=== PATIENT | female | born 1990 | race Two or more races ===

== ENCOUNTER → 2021-03-09 | Outpatient (REF) | payer OTHER ==
[2021-03-09 13:43] LABS: MEAN CORPUSCULAR HEMOGLOBIN 28.7 pg (27.0-33.0); MEAN CORPUSCULAR HGB CONC 32.4 g/dl (32.0-36.5); MEAN CORPUSCULAR VOLUME 88.5 fl (80.0-96.0); PLATELET COUNT, AUTOMATED 191 10^3/uL (150-450); RED BLOOD COUNT 4.18 10^6/uL (4.00-5.40); WHITE BLOOD COUNT 6.8 10^3/uL (4.0-10.0)
[2021-03-09 14:07] LABS: ALBUMIN 3.5 GM/DL (3.2-5.2); ALT/SGPT 68 U/L (12-78); BILIRUBIN,TOTAL 0.3 MG/DL (0.2-1.0); BLOOD UREA NITROGEN 12 MG/DL (7-18); CALCIUM LEVEL 8.9 MG/DL (8.5-10.1); CARBON DIOXIDE LEVEL 27 MEQ/L (21-32); CHLORIDE LEVEL 106 MEQ/L (98-107); CREATININE FOR GFR 0.59 MG/DL (0.55-1.30); GLOMERULAR FILTRATION RATE > 60.0 (>60); GLUCOSE, FASTING 82 MG/DL (70-100); POTASSIUM SERUM 3.9 MEQ/L (3.5-5.1); SODIUM LEVEL 138 MEQ/L (136-145); TOTAL PROTEIN 7.2 GM/DL (6.4-8.2)
[2021-03-09 14:11] LABS: HCG, SERUM QUALITATIVE NEGATIVE (NEGATIVE)
[2021-03-09 14:55] LABS: HIV 1&2 SCREEN CENTAUR NEGATIVE (NEGATIVE)
[2021-03-14 19:07] LABS: HEPATITIS C QUANTITATION 95700 IU/mL (.); HEPATITIS C VIRUS GENOTYPE 1a (.)
== END ==
LOC: M SFHCPLAZ 09:35
PROVIDERS: ATTEND Internal Medicine Infectious Disease
DX: B18.2 Chronic viral hepatitis C (principal)
CPT/HCPCS: 36415; 80053; 81596; 84703; 85027; 87389; 87522; 87902; G0463

== ENCOUNTER → 2021-04-03 | Outpatient (REF) | payer OTHER ==
[2021-04-03 15:32] LABS: ALBUMIN 3.6 GM/DL (3.2-5.2); BILIRUBIN,DIRECT 0.1 MG/DL (0.0-0.2); BILIRUBIN,TOTAL 0.4 MG/DL (0.2-1.0); TOTAL PROTEIN 7.5 GM/DL (6.4-8.2)
[2021-04-04 15:08] LABS: HEPATITIS C QUANTITATION HCV Not Detected IU/mL (.)
== END ==
LOC: M SFHCPLAZ 09:41
PROVIDERS: ATTEND Internal Medicine Infectious Disease
DX: B18.2 Chronic viral hepatitis C (principal)

== ENCOUNTER → 2021-06-09 | Outpatient (CLI) | payer OTHER | LOC: M LABSMTC 11:27 | PROVIDERS: ATTEND Anesthesiology | DX: Z01.812 Encounter for preprocedural laboratory examination (principal); Z20.822 Contact with and (suspected) exposure to COVID-19 ==

== ENCOUNTER 2021-06-14 06:43 | Day surgery (SDC) | payer SELFPAY ==
[~2021-06-14] VITALS: Ht 157.5 cm; Wt 57.2 kg
[~2021-06-14 06:43] MED LIST: ACETAMINOPHEN *IV* 1,000 MG IV ONE; LR 1,000 ML IV ONE; ceFAZolin SOD 2 GM in IV 1 EA IV ONE
[2021-06-14 07:10] LABS: HEMATOCRIT 35.3 % (36.0-47.0); HEMOGLOBIN 11.7 g/dl (12.0-15.5); MEAN CORPUSCULAR HEMOGLOBIN 29.2 pg (27.0-33.0); MEAN CORPUSCULAR HGB CONC 33.1 g/dl (32.0-36.5); PLATELET COUNT, AUTOMATED 189 10^3/uL (150-450); RED BLOOD COUNT 4.01 10^6/uL (4.00-5.40); WHITE BLOOD COUNT 5.6 10^3/uL (4.0-10.0)
[2021-06-14] MEDS ORDERED: METHYLENE BLUE 0.5% (5MG/ML) 10 ML AMP (PROVAYBLUE) As Ordered ONE (07:24)
[2021-06-14 07:30] LABS: BLOOD UREA NITROGEN 7 MG/DL (7-18); CALCIUM LEVEL 8.6 MG/DL (8.5-10.1); CARBON DIOXIDE LEVEL 25 MEQ/L (21-32); CHLORIDE LEVEL 109 MEQ/L (98-107); CREATININE FOR GFR 0.62 MG/DL (0.55-1.30); GLOMERULAR FILTRATION RATE > 60.0 (>60); GLUCOSE, FASTING 93 MG/DL (70-100); POTASSIUM SERUM 3.8 MEQ/L (3.5-5.1); SODIUM LEVEL 140 MEQ/L (136-145)
[2021-06-14] MEDS ORDERED: LIDOCAINE 2% 100MG/5ML SDV (FOR ANES.) As Ordered ONE (08:12)
[2021-06-14] MEDS ORDERED: propofoL 200 MG/20 ML VIAL As Ordered ONE (08:12)
[2021-06-14] MEDS ORDERED: ROCURONIUM BROMIDE 50 MG/5 ML VIAL As Ordered ONE (08:12)
[2021-06-14] MEDS ORDERED: fentaNYL 250 MCG/5 ML INJECTION (J3010) As Ordered ONE (08:13)
[2021-06-14] MEDS ORDERED: MIDAZOLAM INJ 2MG/2ML VIAL (J2250 PER 1MG) As Ordered ONE (08:13)
[2021-06-14] MEDS ORDERED: ONDANSETRON 4MG/2ML VIAL As Ordered ONE (08:18)
[2021-06-14] MEDS ORDERED: dexameTHASONE 4 MG/ML 1ML VIAL (J1100 PER 1MG) As Ordered ONE (08:18)
[2021-06-14] MEDS ORDERED: KETOROLAC 60MG 2ML VIAL As Ordered ONE (08:18)
[2021-06-14] MEDS ORDERED: ACETAMINOPHEN 1000MG 100ML IV BTL (OFIRMEV) (J0131 PER 10MG) As Ordered ONE (08:18)
[2021-06-14] MEDS ORDERED: SUGAMMADEX SODIUM 500 MG/5 ML VIAL (BRIDION) As Ordered ONE (08:30)
[2021-06-14] MEDS ORDERED: HYDROmorphone HCL 2 MG/ML 1ML VIAL (J1170) As Ordered ONE (08:54)
[2021-06-14] MEDS ORDERED: HYDROMORPHONE HCL 0.5 MG/ 0.5 ML SYRINGE (J1170 PER 1) IV PRN (10:20)
[2021-06-14] MEDS ORDERED: ONDANSETRON 4MG/2ML VIAL IV PRN (10:20)
[2021-06-14] MEDS ORDERED: LR 1,000 ML IV SCH ×2 (10:20→10:25)
[2021-06-14] MEDS ORDERED: fentaNYL 100 MCG/2 ML INJECTION (J3010) IV PRN (10:20)
[2021-06-14] MEDS: oxyCODONE 5MG TAB PO PRN ×2 (10:45→11:28)
--- NOTE | 2021-06-14 11:11 | RO ---
OPERATIVE NOTE DATE OF OPERATION: 06/14/2021 Germaine is a 30-year-old multiparous female with history of prior tubal ligations and now desires tubal reversal. After counseling in the office and proper evaluation, a decision was made to proceed with a mini-laparotomy, reanastomosis of both tubes if possible and chromotubation. PREOPERATIVE DIAGNOSIS: 1. Secondary infertility. 2. Tubal ligation status. POSTOPERATIVE DIAGNOSIS: 1. Secondary infertility. 2. Tubal ligation status. 3. Extremely short segment of both tubes. PROCEDURE: Mini-laparotomy. Reanastomosis of both fallopian tubes. Chromotubation with patent tubes at the end of the procedure. SURGEON: Mike Jamil DO RUBBER STAMP DIE INSPECTOR: ANESTHESIA: General COMPLICATIONS: None. ESTIMATED BLOOD LOSS: 50 mL. DESCRIPTION OF PROCEDURE: After obtaining informed consent, the patient was taken to the operating room where general anesthetic was found to be adequate. She was then draped and prepped in the usual sterile fashion in a dorsal lithotomy position. At this point, a HUMI manipulator was placed in the uterus for chromotubation as well as uterine manipulation. A Cam catheter was also placed. I then turned my attention to the abdomen where a 3-4 inch incision was made. This was carried down to the fascia. The fascia was incised in a midline fashion. The peritoneum identified. The peritoneal cavity was entered bluntly. At this time, a Mobius skin retractor was placed. The patient was placed in Trendelenburg, the pelvis inspected, normal appearing uterus, normal ovaries. The two segments of the tubes were identified. The fimbriated ends were extremely short with a short stump at the cornual area. At this point using micro-instruments, the fallopian tube closer to the uterus, the scar tissue was removed at the end and the dye was pushed. At that point, the opening of the tubes was identified. We then used a guidewire through the fimbriated end. The scar tissue around the fimbriated end was also removed. The mesosalpinx of the tubes was identified. 5-0 Monocryl suture was used and the mesosalpinx was closed, bringing the two ends of the tubes closer together. At this point using 5-0 Monocryl suture, we then reanastomosed the tubes in two separate layers with the guidewire in both the fimbriated end as well as the uterine end of the tube. After securing and bringing the tubes together in two separate layers, we then pushed dye through and noted that dye was coming out of the fimbriated end of the tube, no leakage noted. The opposite side was then identified. Again the cornual part of the tube where the ends were scarred were freed up, dye noted coming out of that segment. We did a similar procedure for the fimbriated end using the guidewire. The two ends were brought together. The mesosalpinx was closed using 5-0 Monocryl and the tube was reanastomosed in a similar fashion using the 5-0 Monocryl sutures. Again, dye was pushed at the end of the procedure. Bilateral tubes were found to be patent with dye coming out of the fimbriated end. At this point, the pelvis was copiously irrigated with normal saline and suctioned out. All instruments removed. Instrument count was correct. The peritoneum closed using 2-0 Vicryl, fascia closed in two separate segments of 0 Vicryl sutures and the skin was reapproximated in a subcuticular fashion using 3-0 Vicryl on a [place]. Steri-Strip placed. The patient tolerated the procedure well. She was then transferred to recovery room in stable condition. [facility]
[2021-06-14] MEDS ORDERED: PERC5TAB12 PO (13:41)
[2021-06-14 13:45] VITALS: BP 122/67
[2021-06-14] MEDS ORDERED: IBUPROFEN 800 MG TAB PO SCH (16:00)
== END 2021-06-14 13:55 | disposition home or self-care (01) ==
LOC: M SDC 06:43
PROVIDERS: ATTEND Obstetrics & Gynecology
DX: N97.1 Female infertility of tubal origin (principal); B18.2 Chronic viral hepatitis C
CPT/HCPCS: 36415; 58350; 58750; 80048; 81025; 85027; 86850; 86900; 86901; J0131; J0690; J1100; J1170; J1885; J2250; J2405; J3010; Q9968

== ENCOUNTER 2021-06-27 14:54 | Emergency (ER) | payer SELFPAY ==
[~2021-06-27] VITALS: Ht 157.5 cm; Wt 126.0 kg
[~2021-06-27 14:54] MED LIST changes: -ACETAMINOPHEN *IV* 1,000 MG IV ONE; -LR 1,000 ML IV ONE; +PERC5TAB12 PO; -ceFAZolin SOD 2 GM in IV 1 EA IV ONE
[2021-06-27 14:55] VITALS: BP 123/65
== END 2021-06-27 16:40 | disposition left against medical advice (07) ==
LOC: M ED 14:54
DX: Z53.21 Procedure and treatment not carried out due to patient leaving prior to being seen by health care provider (principal)

== ENCOUNTER 2021-07-12 05:40 | Emergency (ER) | payer OTHER, SELFPAY ==
[~2021-07-12] VITALS: Ht 157.5 cm; Wt 57.8 kg
[2021-07-12] MEDS ORDERED: NS 1,000 ML IV ONE (07:40)
--- NOTE | 2021-07-12 08:24 | REP ---
INDICATION: RUQ pain. COMPARISON: None TECHNIQUE: Real-time sonographic evaluation of the right upper quadrant with Doppler FINDINGS: Multiple ultrasonographic images of the liver show the hepatic parenchymal echo texture to appear unremarkable. There are no focal masses. There is no intrahepatic ductal dilatation. The common bile duct measures approximately 3 mm in its greatest transverse dimension. Multiple ultrasonographic images of the gallbladder show no focal or diffuse gallbladder wall thickening. There are no echogenic foci within the gallbladder lumen, which casts acoustic shadows. There is no pericholecystic edema. Images of the pancreatic region show no gross abnormality. The imaged portion of the right kidney shows a 1 cm sized anechoic structure in the superior pole. IMPRESSION: Unremarkable right upper quadrant ultrasound. There is an incidental right renal cyst. Accredited by the [employer] in General Ultrasound. <Electronically signed by David Minor > 07/12/21 [id number]
[2021-07-12 08:41] LABS: BASO % 0.2 % (0.0-1.0); EOS % 0.5 % (0.0-3.0); HEMATOCRIT 33.2 % (36.0-47.0); LYMPH # 1.2 10^3/uL (1.5-5.0); LYMPH % 15.2 % (24.0-44.0); MEAN CORPUSCULAR HEMOGLOBIN 28.5 pg (27.0-33.0); MEAN CORPUSCULAR HGB CONC 33.1 g/dl (32.0-36.5); MONO # 0.5 10^3/uL (0.0-0.8); MONO % 6.3 % (2.0-8.0); NEUTROPHILS # 6.2 10^3/uL (1.5-8.5); NEUTROPHILS % 77.3 % (36.0-66.0); PLATELET COUNT, AUTOMATED 263 10^3/uL (150-450); RED BLOOD COUNT 3.86 10^6/uL (4.00-5.40); WHITE BLOOD COUNT 8.1 10^3/uL (4.0-10.0)
[2021-07-12 08:56] LABS: ALBUMIN 2.8 GM/DL (3.2-5.2); ALT/SGPT 19 U/L (12-78); BILIRUBIN,DIRECT < 0.1 MG/DL (0.0-0.2); BILIRUBIN,TOTAL 0.2 MG/DL (0.2-1.0); BLOOD UREA NITROGEN 6 MG/DL (7-18); CALCIUM LEVEL 8.3 MG/DL (8.5-10.1); CARBON DIOXIDE LEVEL 28 MEQ/L (21-32); CHLORIDE LEVEL 107 MEQ/L (98-107); CREATININE FOR GFR 0.57 MG/DL (0.55-1.30); GLOMERULAR FILTRATION RATE > 60.0 (>60); GLUCOSE, FASTING 94 MG/DL (70-100); LIPASE 94 U/L (73-393); POTASSIUM SERUM 3.7 MEQ/L (3.5-5.1); SODIUM LEVEL 142 MEQ/L (136-145); TOTAL PROTEIN 7.3 GM/DL (6.4-8.2)
[2021-07-12 08:58] LABS: AMYLASE 79 U/L (25-115); CK-MB VALUE MASS < 1.0 NG/ML (<3.6); CPK CREATINE PHOSPHOKINASE 121 U/L (26-192); MB/CK RELATIVE INDEX 0.83 (< OR =4); TROPONIN I < 0.02 NG/ML (< 0.10)
--- NOTE | 2021-07-12 09:07 | REP ---
INDICATION: Abdominal Pain. COMPARISON: None. FINDINGS: Supine and upright views of the abdomen show the intestinal gas pattern to be nonspecific. There are a few gas-filled mildly dilated small bowel loops in left upper quadrant. Gas and stool is seen throughout the colon within the rectosigmoid region. The organ silhouettes insofar as delineated appear unremarkable. No abdominal calcific densities are seen within the abdomen or pelvis. The accompanying single frontal view of the chest shows no free subdiaphragmatic air, cardiomegaly, infiltrates or effusions. IMPRESSION: Nonspecific intestinal gas pattern. Probable mild ileus. <Electronically signed by David Minor > 07/12/21 0912
[2021-07-12] MEDS ORDERED: KETOROLAC 30 MG/ML 1ML VIAL IV ONE (09:40)
[2021-07-12] MEDS ORDERED: ISOVUE-370 76% 100ML VIAL As Ordered ONE (11:18)
--- NOTE | 2021-07-12 11:58 | REP ---
INDICATION: r/o PE, RUQ/R lower chest pleuritic pain. COMPARISON: None TECHNIQUE: Axial contrast-enhanced images from the lung bases to the pubic symphysis using 100 cc Isovue 370 intravenous contrast material. Coronal and sagittal reformations obtained. This CT examination was performed using the following dose reduction techniques: Automated exposure control, adjustment of mA and/or kv according to the patient's size, and the use of iterative reconstruction technique. FINDINGS: Liver, spleen, pancreas, gallbladder, bilateral adrenal glands and kidneys are normal. There is subtle nonspecific stranding through the mesentery with very subtle hazy changes surrounding few loops of small bowel in the left mid to lower abdomen as well as small amount of free fluid in the pelvis. There is no associated bowel obstruction or free air to suggest perforation and findings may represent an element of enteritis. Incidental 2 cm fat containing periumbilical hernia noted. Pelvis demonstrates normal bladder and prominent appearance to the uterus and adnexa with prominent periuterine vascularity raising the possibility of mild pelvic congestion syndrome. No intraperitoneal or retroperitoneal adenopathy. Abdominal aorta and vasculature appear normal. Musculoskeletal structures are intact and without acute osseous abnormality. IMPRESSION: 1. Findings suspicious for element of infectious/inflammatory enteritis as described above. No evidence for bowel obstruction or perforation. No drainable collection/abscess. 2. Possible nonacute pelvic congestion syndrome may warrant further investigation. <Electronically signed by Kayden Jenkins > 07/12/21 [id number]
--- NOTE | 2021-07-12 12:00 | REP ---
INDICATION: r/o PE, RUQ/R lower chest pleuritic pain COMPARISON: None. TECHNIQUE: Axial contrast enhanced images from the thoracic inlet to the upper abdomen using pulmonary embolus technique with multiplanar re-formations. 100 ml Isovue 370 intravenous contrast material administered without complication. Examination is followed by CT of the abdomen and pelvis due to concomitant abdominal pain. This CT examination was performed using the following dose reduction techniques: Automated exposure control, adjustment of mA and/or kv according to the patient's size, and use of iterative reconstruction technique. FINDINGS: Satisfactory enhancement of the pulmonary vasculature is achieved and no filling defects are identified to suggest pulmonary embolus. Further evaluation of the mediastinum demonstrates normal thoracic aorta, heart and pericardium. The bilateral lung silveira are well aerated and clear without consolidation pleural effusion or pneumothorax. Tracheobronchial tree is patent. No nodule or mass lesion is identified. No adenopathy noted. Surrounding musculoskeletal structures intact IMPRESSION: No evidence for pulmonary embolus. No acute mediastinal or pleural parenchymal process. <Electronically signed by Kayden Jenkins > 07/12/21 [id number]
[2021-07-12] MEDS ORDERED: ONDANSETRON 4MG/2ML VIAL IV ONE (12:20)
[2021-07-12] MEDS ORDERED: MORPHINE 4 MG/ML 1ML VIAL/SYRINGE (J2270) IV ONE (12:20)
--- NOTE | 2021-07-12 12:59 | REP ---
INDICATION: elevated dimer, r/o dvt COMPARISON: None. TECHNIQUE: Lewis scale and color Doppler evaluation using linear high frequency transducer. FINDINGS: Ultrasound examination of the right and left lower extremity deep venous structures from the common femoral vein through the calf/ankle to include the peroneal, and tibial veins demonstrates normal compressibility flow and wave patterns in response to respiration and augmentation. There is no evidence for deep venous thrombosis. IMPRESSION: No evidence for deep venous thrombosis to the bilateral lower extremities. <Electronically signed by Kayden Jenkins > 07/12/21 2050
[2021-07-12] MEDS ORDERED: ACET1TAB16 PO (13:50)
[2021-07-12 14:09] VITALS: BP 98/55
--- NOTE | 2021-07-13 07:39 | ECGEPIP ---
[facility] - ED Test Date: 2021-07-12 Pat Name: CINDY LAINEZ Department: Room: - Gender: Female Shear Operator: JOVANI : 1990 Requested By: RENO Lange PA-C Order Number: [id number] Reading MD: Eri Rayo Measurements Intervals [place] Rate: 71 P: 17 PA: 166 QRS: -42 QRSD: 82 T: 21 QT: 414 QTc: 449 Interpretive Statements Normal sinus rhythm Left axis deviation Septal infarct , age undetermined low voltage limb NSTTW abnormalities No prior Electronically Signed on 07-13-2021 7:39:37 EDT by Eri Rayo
== END 2021-07-12 14:35 | disposition home or self-care (01) ==
LOC: M ED 05:40
DX: K52.9 Noninfective gastroenteritis and colitis, unspecified (principal); N94.89 Other specified conditions associated with female genital organs and menstrual cycle; Z86.19 Personal history of other infectious and parasitic diseases; N28.1 Cyst of kidney, acquired
CPT/HCPCS: 36415; 71275; 74021; 74177; 76705; 80048; 80076; 82150; 82550; 82553; 83690; 84484; 84702; 85025; 85379; 93005; 93970; 96361; 96374; 96375; 99284; J1885; J2270; J2405; Q9967

== ENCOUNTER → 2022-03-20 | Outpatient (CLI) | payer OTHER ==
[~2022-03-20] MED LIST changes: +ACET300T48 PO
== END ==
LOC: M RADPRO 11:18
PROVIDERS: ATTEND Obstetrics & Gynecology
DX: N97.9 Female infertility, unspecified (principal)

== ENCOUNTER → 2022-06-19 | Outpatient (CLI) | payer OTHER ==
[2022-06-19 14:14] LABS: BASO % 0.2 % (0.0-1.0); EOS # 0.1 10^3/uL (0.0-0.5); EOS % 1.5 % (0.0-3.0); HEMATOCRIT 39.7 % (36.0-47.0); HEMOGLOBIN 12.9 g/dl (12.0-15.5); LYMPH # 1.5 10^3/uL (1.5-5.0); LYMPH % 27.7 % (24.0-44.0); MEAN CORPUSCULAR HGB CONC 32.5 g/dl (32.0-36.5); MEAN CORPUSCULAR VOLUME 89.2 fl (80.0-96.0); MONO # 0.4 10^3/uL (0.0-0.8); NEUTROPHILS # 3.4 10^3/uL (1.5-8.5); NEUTROPHILS % 62.1 % (36.0-66.0); PLATELET COUNT, AUTOMATED 216 10^3/uL (150-450); RED BLOOD COUNT 4.45 10^6/uL (4.00-5.40); WHITE BLOOD COUNT 5.5 10^3/uL (4.0-10.0)
[2022-06-19 15:07] LABS: ALBUMIN 3.9 GM/DL (3.2-5.2); ALT/SGPT 96 U/L (12-78); BILIRUBIN,TOTAL 0.7 MG/DL (0.2-1.0); BLOOD UREA NITROGEN 10 MG/DL (7-18); CALCIUM LEVEL 9.1 MG/DL (8.5-10.1); CARBON DIOXIDE LEVEL 28 MEQ/L (21-32); CHLORIDE LEVEL 108 MEQ/L (98-107); CREATININE FOR GFR 0.76 MG/DL (0.55-1.30); GLOMERULAR FILTRATION RATE > 60.0 (>60); GLUCOSE, FASTING 98 MG/DL (70-100); POTASSIUM SERUM 3.8 MEQ/L (3.5-5.1); SODIUM LEVEL 141 MEQ/L (136-145); TOTAL PROTEIN 7.8 GM/DL (6.4-8.2)
[2022-06-20 15:12] LABS: HEPATITIS C QUANTITATION HCV Not Detected IU/mL (.)
== END ==
LOC: M PLALAB 09:05
PROVIDERS: ATTEND Internal Medicine Infectious Disease
DX: B18.2 Chronic viral hepatitis C (principal)

== ENCOUNTER → 2022-07-06 | Outpatient (CLI) | payer OTHER ==
[2022-07-06 14:10] LABS: ALT/SGPT 25 U/L (12-78)
== END ==
LOC: M PLALAB 10:07
PROVIDERS: ATTEND Internal Medicine Infectious Disease
DX: R79.89 Other specified abnormal findings of blood chemistry (principal)

== ENCOUNTER 2023-05-28 09:04 | Day surgery (SDC) | payer OTHER ==
[~2023-05-28] VITALS: Ht 157.5 cm; Wt 63.9 kg
[~2023-05-28 09:04] MED LIST changes: +BALANCED SALT SOLN OPHTH 15 ML BTL As Ordered ONE; +CIPROFLOXACIN 0.3% OPHTH OINTMENT As Ordered ONE; +LIDOCAINE W/EPINEPHRINE 1% 20ML VIAL As Ordered ONE; +POVIDONE-IODINE 5% OPHTH PREP SOL 30ML As Ordered ONE; +SODIUM BICARBONATE 8.4% INJ 50ML SYRINGE As Ordered ONE
[2023-05-28] MEDS ORDERED: fentaNYL 100 MCG/2 ML INJECTION As Ordered ONE (10:12)
[2023-05-28] MEDS ORDERED: MIDAZOLAM INJ 2MG/2ML VIAL As Ordered ONE (10:12)
[2023-05-28] MEDS ORDERED: LIDOCAINE 1% SDV 5ML VIAL SC PRN (12:00)
[2023-05-28] MEDS ORDERED: LR 1,000 ML IV SCH (12:00)
[2023-05-28] MEDS ORDERED: POVIDONE-IODINE 5% OPHTH PREP SOL 30ML As Ordered ONE (12:04)
[2023-05-28] MEDS ORDERED: LIDOCAINE 2% 100MG/5ML SDV (FOR ANES.) As Ordered ONE (12:15)
[2023-05-28] MEDS ORDERED: propofoL 200 MG/20 ML VIAL As Ordered ONE ×2 (12:15→13:47)
[2023-05-28] MEDS ORDERED: ONDANSETRON 4MG 2ML VIAL As Ordered ONE (12:17)
[2023-05-28] MEDS ORDERED: ONDANSETRON 4MG 2ML VIAL IV PRN (13:30)
[2023-05-28] MEDS: oxyCODONE 5MG TAB PO PRN ×2 (14:07→14:49)
[2023-05-28 15:20] VITALS: BP 118/56; TEMP 98.9; O2SAT 98
== END 2023-05-28 15:24 | disposition home or self-care (01) ==
LOC: M SDC 09:04
PROVIDERS: ATTEND Ophthalmology
DX: H11.001 Unspecified pterygium of right eye (principal); R06.83 Snoring; B19.20 Unspecified viral hepatitis C without hepatic coma; Z98.51 Tubal ligation status
CPT/HCPCS: 65426; 88304; J2250; J2405; J3010

== ENCOUNTER 2024-02-14 11:05 | Emergency (ER) | payer OTHER ==
[~2024-02-14] VITALS: Ht 157.5 cm; Wt 64.8 kg
[~2024-02-14 11:05] MED LIST changes: -BALANCED SALT SOLN OPHTH 15 ML BTL As Ordered ONE; -CIPROFLOXACIN 0.3% OPHTH OINTMENT As Ordered ONE; -LIDOCAINE W/EPINEPHRINE 1% 20ML VIAL As Ordered ONE; -POVIDONE-IODINE 5% OPHTH PREP SOL 30ML As Ordered ONE; -SODIUM BICARBONATE 8.4% INJ 50ML SYRINGE As Ordered ONE
[2024-02-14 13:33] VITALS: BP 109/57; TEMP 97.6; O2SAT 100
== END 2024-02-14 13:41 | disposition home or self-care (01) ==
LOC: M ED 11:05
DX: S39.011A Strain of muscle, fascia and tendon of abdomen, initial encounter (principal); X58.XXXA Exposure to other specified factors, initial encounter; Y92.9 Unspecified place or not applicable; Y93.9 Activity, unspecified; Y99.9 Unspecified external cause status

== ENCOUNTER → 2024-05-04 | Outpatient (CLI) | payer OTHER ==
[2024-05-04 12:43] LABS: BASO % 0.5 % (0.0-1.0); EOS # 0.1 10^3/uL (0.0-0.5); EOS % 1.2 % (0.0-3.0); HEMATOCRIT 37.3 % (36.0-47.0); HEMOGLOBIN 12.4 g/dl (12.0-15.5); LYMPH # 1.6 10^3/uL (1.5-5.0); LYMPH % 26.7 % (24.0-44.0); MEAN CORPUSCULAR HEMOGLOBIN 30.4 pg (27.0-33.0); MEAN CORPUSCULAR HGB CONC 33.2 g/dl (32.0-36.5); MEAN CORPUSCULAR VOLUME 91.4 fl (80.0-96.0); MONO # 0.5 10^3/uL (0.0-0.8); MONO % 8.1 % (2.0-8.0); NEUTROPHILS # 3.9 10^3/uL (1.5-8.5); NEUTROPHILS % 63.3 % (36.0-66.0); PLATELET COUNT, AUTOMATED 257 10^3/uL (150-450); RED BLOOD COUNT 4.08 10^6/uL (4.00-5.40); WHITE BLOOD COUNT 6.1 10^3/uL (4.0-10.0)
[2024-05-04 12:58] LABS: FOLATE 8.1 NG/ML (>5.4)
[2024-05-04 12:59] LABS: THYROID STIMULATING HORMONE 2.612 uIU/ML (0.55-4.78)
[2024-05-04 13:02] LABS: ERYTHROCYTE SEDIMENTATION RATE 45 mm/hr (0-20)
[2024-05-04 13:03] LABS: VITAMIN B12 LEVEL 478 PG/ML (211-911)
[2024-05-04 13:05] LABS: ALBUMIN 3.6 G/DL (3.2-5.2); ALKALINE PHOSPHATASE 90 U/L (46-116); ALT/SGPT 17 U/L (7.0-40); AST/SGOT 11 U/L (<34); BILIRUBIN,TOTAL 0.3 MG/DL (0.3-1.2); BLOOD UREA NITROGEN 7 MG/DL (9-23); CALCIUM LEVEL 8.8 MG/DL (8.5-10.1); CARBON DIOXIDE LEVEL 25 MMOL/L (20-31); CHLORIDE LEVEL 108 MMOL/L (98-107); CREATININE FOR GFR 0.65 MG/DL (0.55-1.30); GLOMERULAR FILTRATION RATE > 60.0 (>60); GLUCOSE, FASTING 96 MG/DL (60-100); IRON (FE) 35 UG/DL (50-170); PERCENT SATURATION 9.7 % (13.2-45.0); POTASSIUM SERUM 4.2 MMOL/L (3.5-5.1); SODIUM LEVEL 138 MMOL/L (136-145); TOTAL IRON BINDING CAPACITY 362 UG/DL (250-425); TOTAL PROTEIN 7.4 G/DL (5.7-8.2)
[2024-05-06 01:02] LABS: HCV RNA QUANTITATION <15 NOT DETECTED IU/mL (NOT DETECTED); HCV RNA log10 <1.18 NOT DETECTED Log IU/mL (NOT DETECTED)
== END ==
LOC: M PLALAB 09:05
PROVIDERS: ATTEND Internal Medicine Infectious Disease
DX: Z22.7 Latent tuberculosis (principal); B18.2 Chronic viral hepatitis C; R53.83 Other fatigue

== ENCOUNTER → 2024-06-04 | Outpatient (CLI) | payer OTHER ==
[~2024-06-04] MED LIST changes: +METHACHOLINE KIT (6 VIAL.NEB PREMIX) INH ONE
[2024-06-05 14:22] LABS: BERMUDA GRASS IGE < 0.10 kU/L (<0.10); BIRCH IGE < 0.10 kU/L (<0.10); COMMON RAGWEED SHORT IGE < 0.10 kU/L (<0.10); D001 IGE D PTERONYSSINUS 0.51 kU/L (<0.10); E001-IGE CAT DANDER < 0.10 kU/L (<0.10); E005-IGE DOG DANDER < 0.10 kU/L (<0.10); ELM IGE < 0.10 kU/L (<0.10); I006 IGE COCKROACH < 0.10 kU/L (<0.10); IMMUNOGLOBULIN E FOR ALLERGENS 14 kU/L (<OR=114); M002 IGE CLADOSPORIUM HERBARU < 0.10 kU/L (<0.10); M003 IGE ASPERGILLUS FUMIGATU < 0.10 kU/L (<0.10); M006 IGE ALTERNIA ALTERNATA < 0.10 kU/L (<0.10); M1-PENICILLIUM NOTATUM < 0.10 kU/L (<0.10); MOUSE URINE IGE < 0.10 kU/L (<0.10); MUGWORT IGE < 0.10 kU/L (<0.10); OAK IGE < 0.10 kU/L (<0.10); ROUGH PIGWEED IGE < 0.10 kU/L (<0.10); SHEEP SORREL IGE < 0.10 kU/L (<0.10); SYCAMORE IGE < 0.10 kU/L (<0.10); T001-IGE MAPLE BOX ELDER < 0.10 kU/L (<0.10); T006-IGE MOUNTAIN CEDAR < 0.10 kU/L (<0.10); T014 COTTONWOOD IGE < 0.10 kU/L (<0.10); TIMOTHY GRASS IGE < 0.10 kU/L (<0.10); WALNUT TREE IGE < 0.10 kU/L (<0.10); WHITE ASH IGE < 0.10 kU/L (<0.10); WHITE MULBERRY IGE < 0.10 kU/L (<0.10)
== END ==
LOC: M CARPUL 08:38
PROVIDERS: ATTEND Internal Medicine Pulmonary Disease
DX: R06.00 Dyspnea, unspecified (principal)

== ENCOUNTER → 2024-07-22 | Outpatient (CLI) | payer OTHER ==
[~2024-07-22] MED LIST changes: -METHACHOLINE KIT (6 VIAL.NEB PREMIX) INH ONE
== END ==
LOC: M PLAIMG 06:34
PROVIDERS: ATTEND Nurse Practitioner Family
DX: M25.422 Effusion, left elbow (principal)

== ENCOUNTER → 2024-09-21 | Outpatient (CLI) | payer OTHER | LOC: M PLALAB 11:04 | PROVIDERS: ATTEND Internal Medicine Infectious Disease | DX: R21 Rash and other nonspecific skin eruption (principal) ==

== ENCOUNTER 2025-07-12 17:11 | Emergency (ER) | payer OTHER ==
[~2025-07-12] VITALS: Ht 157.5 cm; Wt 66.4 kg
[~2025-07-12 17:11] MED LIST changes: +HOLTER MONITOR XX
[2025-07-12] MEDS ORDERED: ACET-907 PO (17:34)
[2025-07-12] MEDS ORDERED: [UNRECOGNIZED DRUG - CODE] PO (17:35)
[2025-07-12 21:06] LABS: BASO # 0.0 10^3/uL (0.0-0.2); BASO % 0.4 % (0.0-1.0); EOS # 0.1 10^3/uL (0.0-0.5); EOS % 1.1 % (0.0-3.0); LYMPH # 1.9 10^3/uL (1.5-5.0); LYMPH % 26.5 % (24.0-44.0); MONO # 0.7 10^3/uL (0.0-0.8); MONO % 9.1 % (2.0-8.0); NEUTROPHILS # 4.5 10^3/uL (1.5-8.5); NEUTROPHILS % 62.6 % (36.0-66.0); PLATELET COUNT, AUTOMATED 201 10^3/uL (150-450)
[2025-07-12] MEDS: NS (Normal Saline) 0.9% 1,000 ML IV ONE (21:10)
[2025-07-12] MEDS: ACETAMINOPHEN 500 MG TAB PO ONE (21:12)
[2025-07-12] MEDS: diphenhydrAMINE 50 MG/ML VIAL IV ONE (21:13)
[2025-07-12 21:36] LABS: ALT/SGPT 15 U/L (7.0-40); AST/SGOT 19 U/L (<34); CALCIUM LEVEL 8.6 MG/DL (8.5-10.1); CARBON DIOXIDE LEVEL 23 MMOL/L (20-31); CHLORIDE LEVEL 105 MMOL/L (98-107); CREATININE FOR GFR 0.73 MG/DL (0.55-1.30); GLOMERULAR FILTRATION RATE > 90.0 (>60); POTASSIUM SERUM 3.5 MMOL/L (3.5-5.1); SODIUM LEVEL 137 MMOL/L (136-145)
[2025-07-12] MEDS: MAG SULF 1GM/100ML (MAG RUN) 1 GM in IV 1 EA IV ONE (22:46)
[2025-07-13] VITALS: BP 99/58; TEMP 96.8; O2SAT 99
== END 2025-07-13 00:07 | disposition home or self-care (01) ==
LOC: M ED 17:11
DX: R51.9 Headache, unspecified (principal); Z79.1 Long term (current) use of non-steroidal anti-inflammatories (NSAID); Z79.82 Long term (current) use of aspirin
CPT/HCPCS: 70450; 80048; 80076; 85025; 96365; 96375; 99284; J1200; J2765; J3475